=== PATIENT | female | born 1945 | race Caucasian/White ===

== ENCOUNTER 2022-05-12 00:53 | Day surgery (SDC) | payer MEDICARE, SELFPAY ==
[2022-04-30 10:49] VITALS: BMI 25.6
--- NOTE | 2022-04-30 11:42 | PC.NURSE ---
Report to the Outpatient Waiting Room, entrance under the green pavilion located off [facility], at time _0830_ on date _05/12/22_. OR Time: _1030_. - You and your visitor will be asked to self-screen and do not enter if you have any COVID symptoms. - Only one visitor and NO children visitors are allowed at this time. - The patient visitor is requested to leave or wait in car when not with patient due to restrictions. - A mask is required within the hospital. Patients may have clear liquids (water, carbonated beverages, clear teas, apple juice) until 3 hours prior to surgery (0730 AM) with a maximum of 20 ounces. - No food from midnight until time of surgery Take the following medications with a SIP of water the morning of surgery: _CARVEDILOL, GABAPENTIN, & TRAMADOL IF NEEDED_ Medications to discontinue per ANESTHESIA - _VITAMINS AND SUPPLEMENTS 3 DAYS PRIOR TO SURGERY, Date to take last dose 05/08/22_ Please no make-up, nail citizen of [place], hairspray, perfume, deodorant, or body powder the day of surgery. No jewelry (including any body piercings) or valuables the day of surgery, leave them at home. Please take a shower or bath the night before, or the morning of, surgery with an antibacterial soap. Wear comfortable, loose fitting clothing. - Jewelry must be removed prior to entering the operating room. Rings and piercings that are not removed may be cut off. - The hospital will not accept responsibility for valuables. - Please leave all valuables, including medications, at home the day of surgery. If you are going home after surgery, a licensed transit mixer driver must drive you home. - NO public transportation without another adult. - We recommend that an adult stay with you for 24 hours following discharge. - We also recommend that you do not drive, make important decision, drink alcoholic beverages, or take any drugs that were not prescribed by your health care provider for at least 24 hours after your discharge time. Follow any additional instructions given to you from your surgeon. If you or anyone in your household have experienced Covid symptoms in the past week, please notify your surgeon or the nurse liaison at the phone number below for possible testing. Instructions given to ____PT and asked if any additional questions and then verbalized understanding. Patient advised to call surgeon office or pre surgery nurse liaison [phone] if any additional questions.
--- NOTE | 2022-05-09 08:29 | PM.IMHP ---
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 She had a cystoscopy done by another physician which was consistent with Hunner's ulceration. She declined office cystoscopy by myself. She presents for cystoscopy, bladder biopsy possible steroid injection Review of Systems Review of Systems: All systems reviewed & are unremarkable except as noted in HPI and below PMFSH Social History Social History Smoking status: Former smoker Tobacco type: cigarettes Second hand tobacco smoke exposure: No Additional smoking assessment comments: STATES SOCIAL SMOKER IN THE PAST QUIT 1971~ Alcohol intake: current Alcohol use details: STATES VERY RARELY - FEW TIMES A YEAR Substance use: never Substance use type: does not use Living arrangements: with family Spiritual care concerns: No Meds Home Medications and Allergies Home Medications Medication Instructions Recorded Confirmed Type ascorbic acid (vitamin C) 1,000 mg 1 g PO DAILY 04/30/22 04/30/22 History tablet (Vitamin C) carvedilol 6.25 mg tablet 6.25 mg BID 04/30/22 04/30/22 History cetirizine 10 mg capsule (Zyrtec) 10 mg PO QAM 04/30/22 04/30/22 History cholecalciferol (vitamin D3) 50 50 mcg PO DAILY 04/30/22 04/30/22 History mcg (2,000 unit) capsule ferrous sulfate, dried 159 mg (45 159 mg PO DAILY 04/30/22 04/30/22 History mg iron) tablet,extended release (iron ER) gabapentin 300 mg capsule 300 mg TID 04/30/22 04/30/22 History hydroxyzine HCl 25 mg tablet 25 mg HS 04/30/22 04/30/22 History nitrofurantoin 100 mg PO Q12H 04/30/22 04/30/22 History monohydrate/macrocrystals 100 mg capsule (Macrobid) tramadol 50 mg tablet 50 mg PRN PRN Pain 04/30/22 04/30/22 History vit C 250 mg-vit E 90 mg-zinc 40 1 tablet PO BID 04/30/22 04/30/22 History mg-copper 1 [id number] capsule (PreserVision AREDS-2) Allergies Allergy/AdvReac Type Severity Reaction Status Date / Time morphine AdvReac Itching Verified 04/30/22 10:35 Sulfa (Sulfonamide AdvReac FACIAL Verified 04/30/22 10:35 Antibiotics) SWELLING Exam Narrative: No acute distress Normal breathing Alert and oriented x3 Assessment and Plan Assessment and plan (1) 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 Understands risks of bleeding, infection, damage to bladder, lack of efficacy, need for repeat procedures. She agrees to proceed
[2022-05-12] VITALS (9 sets, daily range): BP systolic 112–196; BP diastolic 59–92; PULSE 46–70; RESP 10–20; TEMP 36.2–36.5; O2SAT 95–100
--- NOTE | 2022-05-12 07:14 | WPDHPUPDATE1 ---
History and Physical Update Update Date/Time: 05/12/22 07:14 History and Physical has been reviewed, including an updated exam of the patient. There are NO changes in the patient's condition. Risks, benefits, and alternatives have been discussed and questions answered. Patient agrees to proceed with procedure.
--- NOTE | 2022-05-12 10:13 | SUR.PREOP ---
dr mccoy stated he did NOT need the UA with reflex today.
[2022-05-12 10:14] LABS: Hemoglobin 9.6 g/dL (12.0-15.0)
[2022-05-12] MEDS: LACTATED RINGERS 1,000 ML 30 ML IV CONT ×2 (10:20→15:05)
[2022-05-12 10:21] LABS: Sodium 137 mmol/L (137-145)
--- NOTE | 2022-05-12 10:25 | WPDANESEPPF ---
Anes - Initial Pre Proc Eval Procedure: Operation Date: 05/12/22 11:15 Proposed Procedures p Cystoscopy, Bladder Biopsy, Steroid Injection - Tariq Johnson MD Date/Time: 05/12/22 10:25 Surgeon: Tariq Johnson MD Pre Op Diagnosis: hunners ulcers Patient Data Age: 77 Gender: F Height: 1.59 m Weight: 65.2 kg Last Vital Signs Temp 36.5 C 05/12/22 10:15 Pulse 56 L 05/12/22 10:15 Resp 14 05/12/22 10:15 BP 196/92 H 05/12/22 10:15 Pulse Ox 100 05/12/22 10:15 O2 Del Method Room Air 05/12/22 10:15 Allergies Allergy/AdvReac Type Severity Reaction Status Date / Time morphine AdvReac Itching Verified 04/30/22 10:35 Sulfa (Sulfonamide AdvReac FACIAL Verified 04/30/22 10:35 Antibiotics) SWELLING Home Medications Medication Instructions Recorded Confirmed Type ascorbic acid (vitamin C) 1,000 mg 1 g PO DAILY 04/30/22 04/30/22 History tablet (Vitamin C) carvedilol 6.25 mg tablet 6.25 mg BID 04/30/22 04/30/22 History cetirizine 10 mg capsule (Zyrtec) 10 mg PO QAM 04/30/22 04/30/22 History cholecalciferol (vitamin D3) 50 50 mcg PO DAILY 04/30/22 04/30/22 History mcg (2,000 unit) capsule ferrous sulfate, dried 159 mg (45 159 mg PO DAILY 04/30/22 04/30/22 History mg iron) tablet,extended release (iron ER) gabapentin 300 mg capsule 300 mg TID 04/30/22 04/30/22 History hydroxyzine HCl 25 mg tablet 25 mg HS 04/30/22 04/30/22 History nitrofurantoin 100 mg PO Q12H 04/30/22 04/30/22 History monohydrate/macrocrystals 100 mg capsule (Macrobid) tramadol 50 mg tablet 50 mg PRN PRN Pain 04/30/22 04/30/22 History vit C 250 mg-vit E 90 mg-zinc 40 1 tablet PO BID 04/30/22 04/30/22 History mg-copper 1 [id number] capsule (PreserVision AREDS-2) Laboratory Tests 05/12/22 05/12/22 10:08 10:08 Hgb Pending Hct Pending Sodium 137 mmol/L mmol/L (137-145) Patient hx anesthesia problems: none Family hx anesthesia problems: none Results Review: All pre-operative results and documents have been reviewed as part of the pre-operative evaluation. [facility] Past Medical History Medical History (Updated 05/12/22 @ 10:26 by Jason Crum MD) HTN (hypertension) Hunner's ulcer Osteoarthritis Social History Social History Smoking status: Former smoker Tobacco type: cigarettes Second hand tobacco smoke exposure: No Additional smoking assessment comments: STATES SOCIAL SMOKER IN THE PAST QUIT 1971~ Alcohol intake: current Alcohol use details: STATES VERY RARELY - FEW TIMES A YEAR Substance use: never Substance use type: does not use Living arrangements: with family Spiritual care concerns: No Anes - Eval Final PreProcedure Day of Procedure 05/12/22 10:25 Patient weight: normal Heart: regular rate and rhythm Lungs: clear to auscultation and normal air movement Airway: Mallampati scale class II Neurological: alert and oriented Last oral intake: >/= 8 hours ASA classification: II Emergent: no Anesthetic plan: proceed Anesthesia type and monitoring: general GIVS and LMA Results Review: All pre-operative results and documents have been reviewed as part of the pre-operative evaluation. Informed Consent: The patient's anesthetic plan and its attendant risks and benefits were discussed with the patient/family/POA. Questions were solicited and answers provided to the satisfaction of the patient/family/POA.
[2022-05-12] MEDS: ceFAZolin 2 GM/D5W 50 ML 2 GM/50 ML BAG IVPB (11:26)
[2022-05-12] MEDS: LIDOCAINE HCL 2% GEL UROJET 10 ML PKG MUCOUS MEM (11:36)
[2022-05-12] MEDS: TRIAMCINOLONE ACET INJ 40 MG/ML VIAL 200 MG XX (11:53)
--- NOTE | 2022-05-12 12:05 | P.OP_ITS ---
Procedure Note - Detailed Date of Procedure 05/12/22 Pre-op Diagnosis hunners ulcers Post-op Diagnosis Same Procedure Performed Cystoscopy, bladder biopsy, steroid injection Surgeon Tariq Johnson MD [employer] None Anesthesia MAC Indications This is a woman with recurrent bladder pain and previous biopsy consistent with Hunner's ulcer. She is here today for a steroid injection. She understands the risks of bleeding, infection, damage to the bladder or urinary tract, lack of efficacy, need for repeat procedures. She agrees to proceed Findings Intensely inflamed bladder. Unable to identify left ureteral orifice. Description of Procedure She was correctly identified. Informed consent obtained. From the operating room. She was given MAC anesthesia. She was prepped draped sterile fashion. Time-out performed. She was given appropriate perioperative antibiotics. Cystoscopy revealed a diffusely intensely inflamed bladder. Right ureteral orifice easily identified. Left ureteral orifice was unable to be identified. I chose a site for biopsy near the top wall of the bladder but not the dome. It was away from any area that I thought were our ureter could be. I biopsied the area. Of fulgurated the biopsy site. I then injected Kenalog diffusely throughout the bladder in many of the more intensely irritated areas. I injected 200 mg of Kenalog total. 5 cc. I examined the bladder under low insufflation pressures. There is no active bleeding. I fulgurated additional ulcer near the dome. Bladder was drained. She was awakened transferred to PACU in stable condition. Estimated Blood Loss 1 Drains No Pathology Yes (Bladder biopsy sent to pathology) Complications No immediate complications Condition Stable Disposition PACU
--- NOTE | 2022-05-12 12:19 | SUR.PHASEI ---
1211- oral airway removed
--- NOTE | 2022-05-12 13:36 | SUR.PHASEII ---
1336 - dr. langford aware of pt's blood pressure 195/75. pt okayed to take morning dose of her B/P medication. pt took home medication of carvedilol
== END 2022-05-12 14:20 | disposition home or self-care (01) ==
PROVIDERS: Anesthesiology; Visit Provider Urology
PROC: 0TBB8ZX Excision of Bladder, Via Natural or Artificial Opening Endoscopic, Diagnostic (ICD-10-PCS; CPT 52204; principal; 2022-05-12 11:15)
DX: N30.10 Interstitial cystitis (chronic) without hematuria (principal); Z87.891 Personal history of nicotine dependence
CPT/HCPCS: 52204; 52283; 36415; 84295; 85014; 85018; 88305; A9270; J0690; J1100; J2405; J2704; J3010; J3301; J7120